=== PATIENT | male | born 1995 | race Caucasian/White ===

== ENCOUNTER 2021-12-30 03:17 | Emergency (ER) | payer SELFPAY ==
--- NOTE | ~2021-12-30 | XR_ITS ---
XR hand RT min 3V DATE: 12/30/2021 03:45 INDICATION: Pain and swelling after punching a wall TECHNIQUE: 3 views COMPARISON: None FINDINGS: There is dorsal dislocation at the second through fifth carpometacarpal joints. No definite fracture is noted. IMPRESSION: Dorsal dislocation at second through fifth carpometacarpal joints Reviewed, dictated and finalized at location A. NG INSPECTOR
[2021-12-30 03:29] VITALS: BP 154/81; PULSE 88; RESP 18; TEMP 37.3; O2SAT 95
--- NOTE | 2021-12-30 03:59 | ED.GENADULT ---
HPI - General Adult General Chief complaint: Extremity Injury, Upper Stated complaint: hand injury Time Seen by Provider: 12/30/21 03:32 Source: RN notes reviewed History of Present Illness HPI narrative: Patient presents emergency department from home for right hand pain. Patient states approximate 1 hour prior to arrival he punched a wall with his right hand. Since that time he has had diffuse pain across the dorsal aspect of his right hand with increased pain going into the fourth and fifth digit. He denies any pain in the wrist or the elbow he denies any other trauma or injury states he has not taken anything for the pain he denies any numbness or tingling of the extremities Related Data Home Medications Medication Instructions Recorded Confirmed No Home Medications 12/30/21 Allergies Allergy/AdvReac Type Severity Reaction Status Date / Time No Known Allergies Allergy Verified 12/30/21 03:28 Review of Systems Review of Systems: Gen.: Denies fevers or chills Musculoskeletal: See HPI Neuro: Denies numbness, tingling, weakness Skin: Denies rash Endo: Denies DM PMFSH Past Medical History Medical History (Updated 12/30/21 @ 05:18 by Vitaliy Mock DO) Patient denies significant medical history Social History Social History (Updated 12/30/21 @ 04:00 by Vitaliy oMck DO) Smoking status: Never smoker Exam Narrative: APPEARANCE: No acute distress, nontoxic, resting in bed Eyes: EOMI HEENT: Normocephalic, atraumatic, RESPIRATORY: No respiratory distress MUSCULOSKELETAl: Tender palpation across the dorsal aspect of the right hand with mild step-off noted no tenderness of the wrist radial pulse 2+ neurovascular intact tact patient is able to flex all 5 MCP and IP joints but it is painful NEURO: Awake and alert. Following commands, speech normal, no focal deficits SKIN:: Warm, dry. Normal Color no rash or lesions Course Course Emergency Course: Discussed with Dr. Martin reviewed films recommends transfer to facility that has hand surgery Discussed with Dr. Yost for hand surgery at [facility] recommends transfer to the ER as patient will require reduction further evaluation discussed with Dr. Taylor who accepts transfer Discussed with patient plan for transfer. Patient in agreement at this time. Discussed patient going by ambulance patient is adamant that he does not go by ambulance. Cannot afford to go by ambulance he states and he will go by private vehicle. I discussed with patient the risks and benefits and the patient at this time states that he will go by private vehicle but adamantly denies use of ambulance discussed need to go directly to the emergency department and to refrain from eating or drinking patient significant other is present and will drive him to the the [facility] ED Vital Signs Vital signs: Vital Signs Temperature 99.2 F 12/30/21 03:29 Pulse Rate 88 12/30/21 03:29 Respiratory Rate 18 12/30/21 03:29 Blood Pressure 154/81 H 12/30/21 03:29 Pulse Oximetry 95 12/30/21 03:29 Oxygen Delivery Room Air 12/30/21 03:29 Temperature 99.2 F 12/30/21 03:29 Pulse Rate 107 H 12/30/21 05:14 Respiratory Rate 18 12/30/21 05:14 Blood Pressure 154/81 H 12/30/21 03:29 Pulse Oximetry 96 12/30/21 05:14 Oxygen Delivery Room Air 12/30/21 03:29 Procedures Orthopedic Splinting/Casting Injury #1: Additional Comments: Right volar: Splint was placed by the emergency department hospital pharmacy technician under my supervision. The patient was neurovascularly intact both pre-and post procedure. Medical Decision Making Vital Signs Vital Signs: Vital Signs Temperature 99.2 F 12/30/21 03:29 Pulse Rate 88 12/30/21 03:29 Respiratory Rate 18 12/30/21 03:29 Blood Pressure 154/81 H 12/30/21 03:29 Pulse Oximetry 95 12/30/21 03:29 Oxygen Delivery Room Air 12/30/21 03:29 Temperature 99.2 F 12/30/21 03:29 Pulse
--- NOTE | 2021-12-30 05:13 | PC.NURSE ---
Checked pulse oximeter readings on all fingers and thumb on right hand. Consistent readings of heart rate of 106-110bpm and oxygen level of 96%.
[2021-12-30 05:14] VITALS: PULSE 107; RESP 18; O2SAT 96
--- NOTE | 2021-12-30 05:52 | PC.NURSE ---
Patient refused EMS transport to [facility], states he would rather go by private vehicle. EDP Nish notified.
== END 2021-12-30 05:54 | disposition short-term general hospital (02) ==
PROVIDERS: Emergency Provider Emergency Medicine
DX: S63.260A Dislocation of metacarpophalangeal joint of right index finger, initial encounter (principal); S63.262A Dislocation of metacarpophalangeal joint of right middle finger, initial encounter; S63.264A Dislocation of metacarpophalangeal joint of right ring finger, initial encounter; S63.266A Dislocation of metacarpophalangeal joint of right little finger, initial encounter; W22.09XA Striking against other stationary object, initial encounter
CPT/HCPCS: 73130; 99283